=== PATIENT | female | born 1960 | race Caucasian/White ===

== ENCOUNTER 2017-02-23 12:44 | Day surgery (SDC) | payer BC ==
[~2017-02-23] VITALS: Ht 167.6 cm; Wt 56.0 kg
[2017-02-23 13:30] VITALS: BP 131/92; PULSE 57; TEMP 97.1
[2017-02-23] MEDS ORDERED: VITAMINC1000TA PO (13:34)
[2017-02-23] MEDS ORDERED: SYNTHROID0.125 MG/T PO (13:34)
[2017-02-23] MEDS ORDERED: COMPLETE SENIOR1 TA1 PO (13:35)
[2017-02-23] MEDS ORDERED: THE MEDICINE S200 M2 PO (13:35)
[2017-02-23] MEDS ORDERED: VITAMIN B12 1541 TAB PO (13:36)
[2017-02-23] MEDS ORDERED: OSTEO-BI-FLEX 21 TAB PO (13:36)
[2017-02-23] MEDS ORDERED: MASON NATURAL1200 MG PO (13:36)
[2017-02-23] MEDS ORDERED: CITRACAL + D CA1 TAB PO (13:38)
[2017-02-23 15:07] VITALS: BP 104/76; PULSE 56; TEMP 98.6
[2017-02-23 15:20] VITALS: BP 101/68; PULSE 50
== END 2017-02-23 16:00 | disposition home or self-care (01) ==
LOC: SDCO 12:44
DX: Z86.010 Personal history of colon polyps (principal); K64.0 First degree hemorrhoids; E03.9 Hypothyroidism, unspecified
CPT/HCPCS: OP; J2250; J3010; J7030